=== PATIENT | female | born 1945 | race African-American/Black ===

== ENCOUNTER 2017-05-21 19:04 | Emergency (ER) | payer MEDICARE, MEDICAID ==
[~2017-05-21] VITALS: Ht 160 cm; Wt 63.5 kg
[~2017-05-21 19:04] MED LIST: GABA-534 PO; INSU100V7 SQ; LEVO125T8 PO; LOSA50TA21 PO; METO-356 PO; SIMV40TA5 PO
[2017-05-21] MEDS ORDERED: oxyCODONE/APAP (5/325 MG) 1 UDTAB TABLET ONE (19:18)
--- NOTE | 2017-05-21 19:22 | NUR ---
[facility] FOR S/P FALL TODAY. BUTTOCK, LT FLANK PAIN, +FOREHEAD HEMATOMA, NO KO. NO SOB NOTED. PAIN ON FOREHEAD/HEMATOMA 09/03. A/OX4 VSS NAD WILL CONTINUE TO MONITOR FOR ANY CHANGES DURING THE SHIFT
[2017-05-21] MEDS ORDERED: oxyCODONE/APAP (5/325 MG) 1 UDTAB TABLET PO ONE (19:30)
--- NOTE | 2017-05-21 19:30 | NUR ---
CODING MACHINE OPERATOR AT BEDSIDE FOR BLOOD DRAW
[2017-05-21 19:45] LABS: BASOPHILS # (AUTO) 0.1 /CMM (0.0-0.2); BASOPHILS % (AUTO) 0.4 % (0.0-2.0); EOSINOPHILS # (AUTO) 0.1 /CMM (0.0-0.7); HEMATOCRIT 29 % (33-45); HEMOGLOBIN 9.5 g/dL (11.5-14.8); LYMPHOCYTES # (AUTO) 3.3 /CMM (0.8-4.8); LYMPHOCYTES % (AUTO) 25.8 % (20.0-44.0); MEAN CORPUSCULAR HEMOGLOBIN 22 PG (26.0-33.0); MEAN CORPUSCULAR HGB CONC 33 g/dl (31.0-36.0); MEAN CORPUSCULAR VOLUME 67 fL (82-100); MONOCYTES # (AUTO) 1.2 /CMM (0.1-1.30); MONOCYTES % (AUTO) 9.5 % (2.0-12.0); NEUTROPHILS # (AUTO) 8.2 /CMM (1.8-8.9); NEUTROPHILS % (AUTO) 63.3 % (43.0-81.0); PLATELET COUNT (AUTO) 267 /CMM (150-450); RDW COEFFICIENT OF VARIATION 20.6 (11.5-15.0); RED BLOOD CELL COUNT(AUTO) 4.33 MIL/uL (4.0-5.2); WHITE BLOOD COUNT (AUTO) 12.9 K/uL (4.3-11.0)
--- NOTE | 2017-05-21 19:48 | NUR ---
RADIOLOGY NOTIFIED ABOUT XRAYS TO BE DONE ON PATIENT. STATED "WE ARE ON THE WAY"
--- NOTE | 2017-05-21 19:49 | NUR ---
CT TO BE DONE WELL
[2017-05-21 19:53] LABS: CALCIUM, SERUM 8.3 mg/dL (8.5-10.1); CARBON DIOXIDE 22 mmol/L (21-32); CHLORIDE 105 mmol/L (98-107); CREATININE 1.4 mg/dL (0.6-1.3); GLUCOSE 215 mg/dL (74-106); POTASSIUM 4.6 mmol/L (3.5-5.1); SODIUM SERUM 137 mmol/L (136-145); UREA NITROGEN, BLOOD 32 mg/dL (7-18)
[2017-05-21 20:02] LABS: TROPONIN I < 0.017 ng/mL (0.00-0.056)
[2017-05-21 20:26] LABS: LYMPHOCYTES % (MANUAL) 26 % (16-48); MONOCYTES % (MANUAL) 5 % (0-11.0); NEUTROPHILS % (MANUAL) 68 (42-76); REACTIVE LYMPHOCYTES 1 % (0-0)
--- NOTE | 2017-05-21 21:51 | NUR ---
GAVE REPORT TO LOREN COOK AT RETURNING FACILITY. [facility] TO BE CALLED FOR PICKUP
--- NOTE | 2017-05-21 21:52 | NUR ---
[facility] ETA: 90 MINS - 2 HRS
--- NOTE | 2017-05-21 23:36 | NUR ---
PT AGITATED THAT AMBULANCE HAS NOT ARRIVED YET. CALMED HER DOWN WITH CONVERSATION. WILL CONTINUE TO WAIT ARRIVAL
[2017-05-22 00:48] VITALS: BP 140/87
== END 2017-05-22 00:49 ==
LOC: ER 19:05
DX: S00.83XA Contusion of other part of head, initial encounter (principal); S30.0XXA Contusion of lower back and pelvis, initial encounter; D64.9 Anemia, unspecified; E03.9 Hypothyroidism, unspecified; E11.9 Type 2 diabetes mellitus without complications; E78.5 Hyperlipidemia, unspecified; F41.9 Anxiety disorder, unspecified; I10 Essential (primary) hypertension; K21.9 Gastro-esophageal reflux disease without esophagitis; F20.9 Schizophrenia, unspecified; R29.6 Repeated falls; Z79.4 Long term (current) use of insulin; W18.39XA Other fall on same level, initial encounter; Y93.89 Activity, other specified; Y92.89 Other specified places as the place of occurrence of the external cause; Y99.8 Other external cause status
CPT/HCPCS: 36415; 70450; 71045; 72170; 72220; 80048; 84484; 85025; 93005; 99285; A4606; Z7610

== ENCOUNTER 2017-05-23 19:20 | Inpatient (IN) | payer MEDICARE, MEDICAID ==
[~2017-05-23] VITALS: Ht 170.2 cm; Wt 90.7 kg
--- NOTE | 2017-05-23 19:36 | NUR ---
PT MEG FROM [facility] HERE FOR PSYCH EVAL "THROWING HERSELF ON THE FLOOR" BUMP NOTED ON FOREHEAD AND DISCOLORATION TO FACE. PT AOX3 RR EVEN AND UNLABORED. NO SOB NOTED. NAD NOTED. NO NVD AT THIS TIME. PT GOWNED AND PLACED ON MONITOR WAITING FOR MD JIMENEZ. PT NOTED WITH STEADY GAIT.
--- NOTE | 2017-05-23 19:40 | NUR ---
URINE COLLECTED. CALLED LAB FOR TRAFFIC ADMINISTRATOR.
--- NOTE | 2017-05-23 19:52 | NUR ---
LAB AT BEDSIDE FOR BLOOD DRAW
--- NOTE | 2017-05-23 19:58 | NUR ---
Emeterio BENSON AT BEDSIDE FOR EVAL.
[2017-05-23 20:09] LABS: APPEARANCE,URINE Clear (CLEAR); BILIRUBIN,URINE Negative (NEGATIVE); BLOOD, URINE Negative Ery/uL (NEGATIVE); COLOR,URINE Light yellow (YELLOW); KETONES,URINE Negative (NEGATIVE); LEUKOCYTE ESTERASE ,URINE Negative (NEGATIVE); NITRITE, URINE Negative (NEGATIVE); PROTEIN,URINE Negative (NEGATIVE); UGLUCOSE Negative (NEGATIVE); UROBILINOGEN,URINE 0.2 EU/dL (0.2)
--- NOTE | 2017-05-23 20:41 | NUR ---
CALLED BAKARI HAGEN, PER JOYCE DOW UNWITNESSWED FALL IN RESTROOM SEVERAL DAYS AGO, STATES PT WANTS TO HARM HERSELF TODAY ADMITS TO SI WITH PLAN TO RUN INFRONT OF TRAFFIC, REPAIRER KILN CAR LAYING ON GROWN AND TRIED TO BANG HEAD AGAINST FLOOR, AND RECEIVED SEROQUEL 75MG, PO WAS SEEN BY DR PRETTY EARLIER TODAY. "
--- NOTE | 2017-05-23 20:47 | NUR ---
PT ASSIGNED TO 216-B
--- NOTE | 2017-05-23 20:49 | NUR ---
PT TO CT.
--- NOTE | 2017-05-23 21:07 | NUR ---
PT RETURNED FROM CT
--- NOTE | 2017-05-23 21:16 | NUR ---
CALLED LAB FOR BLOOD DRAW
--- NOTE | 2017-05-23 21:20 | NUR ---
LAB AT BEDSIDE FOR BLOOD DRAW
[2017-05-23] MEDS ORDERED: TRAMADOL HCL 50 MG TABLET PO ONE (22:30)
--- NOTE | 2017-05-23 22:30 | NUR ---
PT ADMITS TO GIVING FALSE URINE. NEW URINE COLLECTED. CALLED LAB FOR DATABASE TECHNICIAN.
--- NOTE | 2017-05-23 22:33 | NUR ---
PINKY AT BEDSIDE SPEAKING TO PT FOR EVAL.
[2017-05-23 22:40] LABS: ALANINE AMINOTRANSFERASE 53 U/L (12-78); ALBUMIN 3.2 g/dL (3.4-5.0); ALCOHOL, BLOOD < 3 mg/dL (0-0); ALKALINE PHOSPHATASE 320 U/L (46-116); ASPARTATE AMINOTRANSFERASE 54 U/L (15-37); BILIRUBIN,DIRECT 0.2 mg/dL (0.0-0.2); BILIRUBIN,TOTAL 0.4 mg/dL (0.2-1.0); CALCIUM, SERUM 8.8 mg/dL (8.5-10.1); CARBON DIOXIDE 22 mmol/L (21-32); CHLORIDE 101 mmol/L (98-107); CREATININE 1.4 mg/dL (0.6-1.3); GLUCOSE 240 mg/dL (74-106); POTASSIUM 4.6 mmol/L (3.5-5.1); SODIUM SERUM 136 mmol/L (136-145); TOTAL PROTEIN, SERUM 9.4 g/dL (6.4-8.2); UREA NITROGEN, BLOOD 31 mg/dL (7-18)
[2017-05-23 22:43] LABS: ACETAMINOPHEN 0 ug/ml (10-30); SALICYLATE 1.1 mg/dL (2.8-20.0)
[2017-05-23 22:45] LABS: EOSINOPHILS # (AUTO) 0.2 /CMM (0.0-0.7); EOSINOPHILS % (AUTO) 1.7 % (0.0-6.0); HEMATOCRIT 36 % (33-45); LYMPHOCYTES # (AUTO) 3.9 /CMM (0.8-4.8); LYMPHOCYTES % (AUTO) 33.6 % (20.0-44.0); MEAN CORPUSCULAR HEMOGLOBIN 22 PG (26.0-33.0); MEAN CORPUSCULAR HGB CONC 31 g/dl (31.0-36.0); MEAN CORPUSCULAR VOLUME 69 fL (82-100); MONOCYTES # (AUTO) 0.8 /CMM (0.1-1.30); MONOCYTES % (AUTO) 6.7 % (2.0-12.0); NEUTROPHILS # (AUTO) 6.7 /CMM (1.8-8.9); PLATELET COUNT (AUTO) 346 /CMM (150-450); RDW COEFFICIENT OF VARIATION 23.1 (11.5-15.0); RED BLOOD CELL COUNT(AUTO) 5.11 MIL/uL (4.0-5.2); WHITE BLOOD COUNT (AUTO) 11.6 K/uL (4.3-11.0)
--- NOTE | 2017-05-23 23:01 | NUR ---
REPORT GIVEN JOYCE FOSTER FOR GEOPSYCH HIRO
--- NOTE | 2017-05-23 23:08 | NUR ---
PT TRANSFERRED VIA W/C TO [facility].
[2017-05-23 23:16] VITALS: BP 146/56
--- NOTE | 2017-05-23 23:16 | NUR ---
GPS RN NOTES: ADMITTED A 72-Y/O, FROM [facility], PATIENT ADMITTED ON A 5150 HOLD FOR DTS/GD. PER HOLD PATIENT HAS BEEN THROWING HERSELF ON THE FLOOR, DISRUPTIVE BEHAVIOR, DISORGANIZE, PATIENT ALSO VERBALIZE OF WANTING TO RUN INTO TRAFFIC. UPON FACE TO FACE ASSESSMENT, PATIENT IS ALERT, ORIENTED X2, AMBULATORY WITH UNSTEADY GAIT, APPEARS TO BE DISHEVELED, UNKEMPT, PREOCCUPIED TO HER THOUGHTS. SHOWS NO S/SX OF DISTRESS, RESPIRATION EVEN, BREATHING PATTERN NON-LABORED, DENIES ANY PAIN/DISCOMFORT. PATIENT RESTING COMFORTABLY IN BED, NO APPARENT DISTRESS NOTED. BELONGINGS INVENTORIED AND CHECKED FOR CONTRABAND. REVIEWED PATIENT'S RIGHTS AND SHE VERBALIZED UNDERSTANDING. PATIENT IS UNDER THE PSYCHIATRIC CARE OF DR. BROWNING, ORDERS OBTAINED AND UNDER THE MEDICAL CARE OF KELLY RDZ DONE. SKIN ASSESSMENT DONE. BED LOCKED AND PLACED ON LOWEST POSITION. WILL CONTINUE TO MONITOR [id number] FOR SAFETY AND BEHAVIOR.
[2017-05-24] MEDS ORDERED: MAGNESIUM HYDROXIDE 30 ML UDC PO PRN
[2017-05-24] MEDS ORDERED: MAG HYDROX/AL HYDROX/SIMETH 30 ML UDC PO PRN
[2017-05-24] MEDS ORDERED: ENOXAPARIN SODIUM 40 MG/0.4 ML DISP.SYRIN SQ SCH (00:30)
[2017-05-24] MEDS ORDERED: DEXTROSE 50%-WATER 50 ML DISP.SYRIN IV PRN (00:30)
[2017-05-24] MEDS: ACETAMINOPHEN 325 MG TABLET PO PRN ×2 (00:30→07:40)
--- NOTE | 2017-05-24 00:55 | NUR ---
GPS RN NOTES: PATIENT REFUSED LOVENOX 40MEQ SQ SCHEDULED. OFFERED X3, DESPITE OF EXPLANATION RISKS AND BENEFITS. WILL CONTINUE TO MONITOR.
[2017-05-24] MEDS: TEMAZEPAM 7.5 MG CAPSULE PO PRN ×2 (00:56→23:51)
--- NOTE | 2017-05-24 06:36 | NUR ---
GPS RN NOTES: NOTIFIED JEWELL ALBRECHT DAUGHTER REGARDING PATIENT'S ADMISSION.
[2017-05-24 07:35] LABS: EOSINOPHILS # (AUTO) 0.2 /CMM (0.0-0.7); EOSINOPHILS % (AUTO) 1.7 % (0.0-6.0); HEMATOCRIT 30 % (33-45); HEMOGLOBIN 9.5 g/dL (11.5-14.8); LYMPHOCYTES # (AUTO) 2.7 /CMM (0.8-4.8); LYMPHOCYTES % (AUTO) 29.2 % (20.0-44.0); MEAN CORPUSCULAR HEMOGLOBIN 22 PG (26.0-33.0); MEAN CORPUSCULAR HGB CONC 32 g/dl (31.0-36.0); MEAN CORPUSCULAR VOLUME 69 fL (82-100); MONOCYTES # (AUTO) 0.9 /CMM (0.1-1.30); MONOCYTES % (AUTO) 10.1 % (2.0-12.0); NEUTROPHILS # (AUTO) 5.5 /CMM (1.8-8.9); PLATELET COUNT (AUTO) 298 /CMM (150-450); RDW COEFFICIENT OF VARIATION 22.5 (11.5-15.0); RED BLOOD CELL COUNT(AUTO) 4.36 MIL/uL (4.0-5.2); WHITE BLOOD COUNT (AUTO) 9.3 K/uL (4.3-11.0)
[2017-05-24] MEDS: BLOOD SUGAR DIAGNOSTIC 1 EACH STRIP IN SCH ×4 (07:48→22:02)
[2017-05-24] MEDS: INSULIN REGULAR, HUMAN 100 UNIT/ML 3 ML VIAL SQ PRN ×3 (07:55→17:36)
[2017-05-24 07:56] LABS: CALCIUM, SERUM 8.4 mg/dL (8.5-10.1); CARBON DIOXIDE 25 mmol/L (21-32); CHLORIDE 104 mmol/L (98-107); CREATININE 1.2 mg/dL (0.6-1.3); GLUCOSE 254 mg/dL (74-106); MAGNESIUM 1.9 mg/dL (1.8-2.4); PHOSPHORUS 3.4 mg/dL (2.5-4.9); POTASSIUM 4.4 mmol/L (3.5-5.1); SODIUM SERUM 138 mmol/L (136-145); UREA NITROGEN, BLOOD 29 mg/dL (7-18)
[2017-05-24 08:00] VITALS: BP 123/90
[2017-05-24] MEDS: LORAZEPAM 0.5 MG TABLET PO PRN ×2 (08:04→18:17)
--- NOTE | 2017-05-24 08:05 | NUR ---
RN NOTE: PATIENT ASKED FOR PAIN MEDICATION, PULLED OUT ACETAMINOPHEN. PATIENT DENIED. MED WASTED. PATIENT STATES SHE IS ANXIOUS. LORAZEPAM 0.5MG GIVEN.
[2017-05-24] MEDS: METOPROLOL SUCCINATE 25 MG TAB.SR.24H PO SCH (08:54)
[2017-05-24] MEDS: LOSARTAN POTASSIUM 50 MG TABLET PO SCH (08:54)
[2017-05-24] MEDS: SIMVASTATIN 40 MG TABLET PO SCH (08:54)
[2017-05-24] MEDS ORDERED: GABAPENTIN 300 MG CAPSULE PO SCH ×2 (09:00→13:00)
[2017-05-24 09:25] LABS: BAND % (MANUAL) 1 % (0.0-5.0); EOSINOPHILS % (MANUAL) 2 % (0-4); LYMPHOCYTES % (MANUAL) 32 % (16-48); MONOCYTES % (MANUAL) 7 % (0-11.0); NEUTROPHILS % (MANUAL) 58 (42-76)
[2017-05-24 11:20] LABS: CHOLESTEROL 189 mg/dL (<200); HDL CHOLESTEROL 72 mg/dL (40-60); LDL 88 mg/dL (0-99); TRIGLYCERIDES 129 mg/dL (30-150)
[2017-05-24 11:34] LABS: IRON, SERUM 29 ug/dl (50-175)
[2017-05-24] MEDS ORDERED: clonazePAM 0.5 MG TABLET PO PRN (12:00)
[2017-05-24] MEDS: QUETIAPINE FUMARATE 25 MG TABLET PO SCH ×3 (13:00→21:54)
[2017-05-24] MEDS: GABAPENTIN 300 MG CAPSULE PO SCH ×2 (13:01→16:42)
[2017-05-24] MEDS: busPIRone 5 MG TABLET PO SCH ×2 (13:01→16:42)
--- NOTE | 2017-05-24 13:38 | NUR ---
WOUND CARE CONSULT: PT PRESENTS WITH BUMP TO RT FOREHEAD, BRUISING WITH SWELLING AROUND RT EYE, BRUISING UNDER LEFT EYE, ABDOMINAL SKIN FOLD RASH AND RT GREAT TOE CALLUS, SOME DRY ABRASIONS, ALL PRESENT ON ADMISSION. PT IS AMBULATORY AND MOSTLY CONTINENT WITH SOME URINARY STRESS INCONTINENCE. DEFER TO MD FOR RT FOREHEAD BUMP. RECOMMENDATIONS MADE FOR SKIN PROTECTION AND RASH CARE. DISCUSSED WITH NURSING STAFF. WILL SEE PRN. MD IN AGREEMENT WITH PLAN OF CARE. Addendum: 05/24/17 at 1344 by VERÓNICA NAVARRETE WNDNU Amended: Links added.
[2017-05-24] MEDS: Z GUARD REMEDY 2 OZ OINT TP SCH (14:00)
[2017-05-24] MEDS ORDERED: Z GUARD REMEDY 2 OZ OINT TP PRN (14:00)
--- NOTE | 2017-05-24 14:34 | NUR ---
Initial Discharge Note: [facility] [address] [place] [id number] / fax number [phone]. Patient wishes to return upon discharge. SW called and spoke with grant coordinator BRETT who confirmed that patient is able to return to facility. SW attempted to get in contact with patient's mother, Queenie [phone], but call was not answered and no voicemail was available. SW to follow up with MD and facilitate safe and proper discharge.
[2017-05-24] MEDS: FERROUS SULFATE (325 MG) 325 MG/TAB TABLET PO SCH (16:42)
[2017-05-24] MEDS: SERTRALINE HCL 25 MG TABLET PO SCH (16:42)
[2017-05-24] MEDS: HYDROCODONE/APAP 5/325MG 1 EACH TABLET PO PRN (16:42)
[2017-05-24] MEDS: CLOTRIMAZOLE 1% 15 GM TUBE TP SCH (16:42)
[2017-05-24 17:07] VITALS: BP 150/69
--- NOTE | 2017-05-24 17:16 | NUR ---
PATIENT STATES SHE HAS 8/10 PAIN. NORCO PRN GIVEN.
--- NOTE | 2017-05-24 18:18 | NUR ---
PATIENT ANXIOUS. LORAZEPAM 0.5MG GIVEN.
--- NOTE | 2017-05-24 19:20 | NUR ---
GPS/HIGH SCALER; RECEIVED PT IN THE DINING ROOM SITTING ON THE CHAIR AWAKE WATCHING TV. DENIES ANY PAIN. BREATHING NON LABORED. PT IS AMBULATORY. WILL CONTINUE TO MONITOR.
[2017-05-24] MEDS: INSULIN LISPRO/ASPART 100 UNIT/ML CARTRIDGE SQ SCH (19:22)
[2017-05-24 21:00] VITALS: BP 146/72
[2017-05-24] MEDS: INSULIN GLARGINE, 100 UNIT/ML CARTRIDGE SQ SCH (22:00)
--- NOTE | 2017-05-24 22:00 | NUR ---
GPS/ AT RISK PARAPROFESSIONAL; BS 42 ON LT 5TH FINGER ; RE CHECKED BS 52. CHARGE NURSE NOTIFIED. APPLE JUICE WITH SUGAR GIVEN. PT REFUSED MADAY EAT SANDWICH. LANTUS 18 UNITS SQ NOT GIVEN ALSO.
--- NOTE | 2017-05-24 23:15 | NUR ---
GPS/RN DIALYSIS; RE CHECKED BS 119 AND CHARGE NURSE INFORMED.
--- NOTE | 2017-05-24 23:30 | NUR ---
GPS/[employer]IONS FIRM ACCOUNTS MANAGER; I PLACED A CALL TO NALLELY BRUNNER POWER DRIVEN BRUSH MAKER, AND I NOTIFIED HER PT'S BS 42 , RE CHECKED 52 AND AT 2315 BS 119. I TOLD HER THAT I DID NOT GIVE THE LANTUS. AND SHE IT IS OK.
--- NOTE | 2017-05-25 06:45 | NUR ---
GPS /ANAESTHESIOLOGIST; SLEPT FOR 7 HOURS. DENIES PAIN. BREATHING NON LABORED. WILL ENDORSE TO THE DAY SHIFT NURSE.
--- NOTE | 2017-05-25 07:00 | NUR ---
GPS/COMPUTER VIDEO GAME DESIGNER; STILL WITH FACIAL DISCOLORATION.
[2017-05-25] MEDS: BLOOD SUGAR DIAGNOSTIC 1 EACH STRIP IN SCH ×4 (07:36→21:32)
[2017-05-25] MEDS: INSULIN REGULAR, HUMAN 100 UNIT/ML 3 ML VIAL SQ PRN ×2 (07:39→12:12)
[2017-05-25] MEDS: LEVOTHYROXINE SODIUM 125 MCG TABLET PO SCH (07:46)
[2017-05-25 08:00] VITALS: BP 150/70
[2017-05-25] MEDS: QUETIAPINE FUMARATE 25 MG TABLET PO SCH ×4 (08:44→21:32)
[2017-05-25] MEDS: SIMVASTATIN 40 MG TABLET PO SCH (08:44)
[2017-05-25] MEDS: GABAPENTIN 300 MG CAPSULE PO SCH ×3 (08:44→16:21)
[2017-05-25] MEDS: LOSARTAN POTASSIUM 50 MG TABLET PO SCH (08:44)
[2017-05-25] MEDS: busPIRone 5 MG TABLET PO SCH ×3 (08:44→16:20)
[2017-05-25] MEDS: CLOTRIMAZOLE 1% 15 GM TUBE TP SCH ×2 (08:45→16:21)
[2017-05-25] MEDS: METOPROLOL SUCCINATE 25 MG TAB.SR.24H PO SCH (08:45)
[2017-05-25] MEDS: FERROUS SULFATE (325 MG) 325 MG/TAB TABLET PO SCH ×2 (08:45→16:21)
[2017-05-25] MEDS: Z GUARD REMEDY 2 OZ OINT TP SCH (08:45)
[2017-05-25] MEDS: INSULIN LISPRO/ASPART 100 UNIT/ML CARTRIDGE SQ SCH ×2 (09:00→17:31)
--- NOTE | 2017-05-25 09:29 | NUR ---
Discharge Planning: CONOR spoke with patient's mother, Queenie [phone]. Queenie stated that she was glad to hear patient would be returning to SNF upon discharge.
[2017-05-25] MEDS: HYDROCODONE/APAP 5/325MG 1 EACH TABLET PO PRN (09:37)
--- NOTE | 2017-05-25 09:39 | NUR ---
PATIENT STATES SHE IS IN PAIN. 11/03. PRN HYDROCODONE GIVEN.
[2017-05-25] MEDS: LORAZEPAM 0.5 MG TABLET PO PRN (15:52)
--- NOTE | 2017-05-25 15:53 | NUR ---
PATIENT IS ANXIOUS. LORAZEPAM 0.5 MG GIVEN
[2017-05-25 16:02] VITALS: BP 155/79
[2017-05-25] MEDS: SERTRALINE HCL 25 MG TABLET PO SCH (16:20)
[2017-05-25 20:00] VITALS: BP 153/63
[2017-05-25] MEDS: PHENYTOIN EXTENDED RELEASE 100 MG CAPSULE PO SCH (21:32)
[2017-05-25] MEDS: INSULIN GLARGINE, 100 UNIT/ML CARTRIDGE SQ SCH (21:36)
[2017-05-25] MEDS: *INSULIN REGULAR(HUMULIN R)HUM 100 UNIT/ML VIAL SQ PRN (21:38)
[2017-05-26] MEDS: LORAZEPAM 0.5 MG TABLET PO PRN (04:25)
[2017-05-26] MEDS: LEVOTHYROXINE SODIUM 125 MCG TABLET PO SCH (07:30)
[2017-05-26] MEDS: BLOOD SUGAR DIAGNOSTIC 1 EACH STRIP IN SCH ×4 (07:30→21:41)
[2017-05-26 08:00] VITALS: BP 145/64
[2017-05-26] MEDS: busPIRone 5 MG TABLET PO SCH ×3 (08:24→17:00)
[2017-05-26] MEDS: METOPROLOL SUCCINATE 25 MG TAB.SR.24H PO SCH (08:24)
[2017-05-26] MEDS: CALCIUM CARB 600MG /VIT D 1 EACH TABLET PO SCH (08:24)
[2017-05-26] MEDS: SIMVASTATIN 40 MG TABLET PO SCH (08:24)
[2017-05-26] MEDS: LOSARTAN POTASSIUM 50 MG TABLET PO SCH (08:25)
[2017-05-26] MEDS: PHENYTOIN EXTENDED RELEASE 100 MG CAPSULE PO SCH (08:25)
[2017-05-26] MEDS: FERROUS SULFATE (325 MG) 325 MG/TAB TABLET PO SCH ×2 (08:25→17:00)
[2017-05-26] MEDS: GABAPENTIN 300 MG CAPSULE PO SCH ×3 (08:25→17:00)
[2017-05-26] MEDS: HYDROCODONE/APAP 5/325MG 1 EACH TABLET PO PRN ×2 (08:26→18:52)
[2017-05-26] MEDS: QUETIAPINE FUMARATE 25 MG TABLET PO SCH ×4 (08:26→21:41)
[2017-05-26] MEDS: INSULIN REGULAR, HUMAN 100 UNIT/ML 3 ML VIAL SQ PRN ×3 (08:29→18:55)
[2017-05-26] MEDS: INSULIN LISPRO/ASPART 100 UNIT/ML CARTRIDGE SQ SCH ×2 (08:31→18:56)
[2017-05-26] MEDS: Z GUARD REMEDY 2 OZ OINT TP SCH (08:32)
[2017-05-26] MEDS: CLOTRIMAZOLE 1% 15 GM TUBE TP SCH ×2 (08:32→18:53)
--- NOTE | 2017-05-26 11:20 | NUR ---
Discharge Planning: CONOR faxed updated clinicals to [address] [address] / fax number [phone]. Discharge confirmed for Monday.
[2017-05-26 16:00] VITALS: BP 142/69
[2017-05-26] MEDS: SERTRALINE HCL 25 MG TABLET PO SCH (17:00)
[2017-05-26 20:00] VITALS: BP 129/65
[2017-05-26] MEDS: TEMAZEPAM 7.5 MG CAPSULE PO PRN (21:41)
[2017-05-26] MEDS: *INSULIN REGULAR(HUMULIN R)HUM 100 UNIT/ML VIAL SQ PRN (21:48)
[2017-05-26] MEDS ORDERED: INSULIN GLARGINE, 100 UNIT/ML CARTRIDGE SQ ONE (22:12)
[2017-05-26] MEDS: INSULIN GLARGINE, 100 UNIT/ML CARTRIDGE SQ SCH (22:39)
[2017-05-27 08:00] VITALS: BP 144/78
[2017-05-27] MEDS: BLOOD SUGAR DIAGNOSTIC 1 EACH STRIP IN SCH ×4 (08:36→21:39)
[2017-05-27] MEDS: LEVOTHYROXINE SODIUM 125 MCG TABLET PO SCH (08:38)
[2017-05-27] MEDS: GABAPENTIN 300 MG CAPSULE PO SCH ×3 (08:38→16:25)
[2017-05-27] MEDS: SIMVASTATIN 40 MG TABLET PO SCH (08:38)
[2017-05-27] MEDS: LORAZEPAM 0.5 MG TABLET PO PRN (08:39)
[2017-05-27] MEDS: METOPROLOL SUCCINATE 25 MG TAB.SR.24H PO SCH (08:39)
[2017-05-27] MEDS: busPIRone 5 MG TABLET PO SCH ×3 (08:39→16:25)
[2017-05-27] MEDS: CALCIUM CARB 600MG /VIT D 1 EACH TABLET PO SCH (08:39)
[2017-05-27] MEDS: QUETIAPINE FUMARATE 25 MG TABLET PO SCH ×4 (08:39→22:07)
[2017-05-27] MEDS: LOSARTAN POTASSIUM 50 MG TABLET PO SCH (08:39)
[2017-05-27] MEDS: *INSULIN REGULAR(HUMULIN R)HUM 100 UNIT/ML VIAL SQ PRN ×2 (08:41→21:41)
[2017-05-27] MEDS: FERROUS SULFATE (325 MG) 325 MG/TAB TABLET PO SCH ×2 (08:43→16:27)
--- NOTE | 2017-05-27 08:45 | NUR ---
GPS RN NOTES PATIENT VERBALIZED FEELING OF ANXIOUSNESS. NO CHANGES IN LOC NOTED AT THIS TIME. PATIENT REQUESTED FOR ATIVAN, GIVEN MEDICATION ORDERED PRN. WILL CONTINUE TO MONITOR
[2017-05-27] MEDS: INSULIN REGULAR, HUMAN 100 UNIT/ML 3 ML VIAL SQ PRN ×3 (08:47→17:37)
[2017-05-27] MEDS: INSULIN LISPRO/ASPART 100 UNIT/ML CARTRIDGE SQ SCH ×2 (08:48→17:38)
[2017-05-27] MEDS: CLOTRIMAZOLE 1% 15 GM TUBE TP SCH ×2 (08:49→16:26)
[2017-05-27] MEDS: Z GUARD REMEDY 2 OZ OINT TP SCH (09:24)
[2017-05-27] MEDS: HYDROCODONE/APAP 5/325MG 1 EACH TABLET PO PRN (11:16)
--- NOTE | 2017-05-27 11:18 | NUR ---
GPS RN NOTES PATIENT WITH COMPLAIN OF SEVERE LOWER BACK PAIN. GIVEN NORCO 5/325 NG PO ORDERED PRN. PATIENT ALERT AND ORIENTED. NO CHANGES IN LOC NOTED AT THIS TIME. NO INCREASED SEDATION NOTED. WILL CONTINUE TO MONITOR
[2017-05-27 16:00] VITALS: BP 163/65
[2017-05-27] MEDS: ACETAMINOPHEN 325 MG TABLET PO PRN (16:24)
[2017-05-27] MEDS: SERTRALINE HCL 25 MG TABLET PO SCH (16:25)
[2017-05-27 20:00] VITALS: BP 131/67
[2017-05-27] MEDS: INSULIN GLARGINE, 100 UNIT/ML CARTRIDGE SQ SCH (22:00)
[2017-05-27] MEDS: TEMAZEPAM 7.5 MG CAPSULE PO PRN (22:07)
--- NOTE | 2017-05-28 01:40 | NUR ---
Pt barragan been anxious with flat affect but compliant with care.
--- NOTE | 2017-05-28 05:50 | NUR ---
Pt's blood sugar level last night was 171 mg/dl & 3 Units of Regular Insulin was given SQ as ordered.
[2017-05-28 08:00] VITALS: BP 144/62
[2017-05-28] MEDS: GABAPENTIN 300 MG CAPSULE PO SCH ×3 (08:11→17:07)
[2017-05-28] MEDS: LEVOTHYROXINE SODIUM 125 MCG TABLET PO SCH (08:12)
[2017-05-28] MEDS: METOPROLOL SUCCINATE 25 MG TAB.SR.24H PO SCH (08:12)
[2017-05-28] MEDS: SIMVASTATIN 40 MG TABLET PO SCH (08:12)
[2017-05-28] MEDS: LOSARTAN POTASSIUM 50 MG TABLET PO SCH (08:12)
[2017-05-28] MEDS: QUETIAPINE FUMARATE 25 MG TABLET PO SCH ×4 (08:13→21:43)
[2017-05-28] MEDS: busPIRone 5 MG TABLET PO SCH ×3 (08:13→17:07)
[2017-05-28] MEDS: CALCIUM CARB 600MG /VIT D 1 EACH TABLET PO SCH (08:17)
[2017-05-28] MEDS: FERROUS SULFATE (325 MG) 325 MG/TAB TABLET PO SCH ×2 (08:18→17:00)
[2017-05-28] MEDS: Z GUARD REMEDY 2 OZ OINT TP SCH (08:22)
[2017-05-28] MEDS: INSULIN LISPRO/ASPART 100 UNIT/ML CARTRIDGE SQ SCH ×2 (09:00→18:05)
[2017-05-28] MEDS: CLOTRIMAZOLE 1% 15 GM TUBE TP SCH ×2 (09:06→17:13)
[2017-05-28] MEDS: BLOOD SUGAR DIAGNOSTIC 1 EACH STRIP IN SCH ×3 (12:00→21:53)
--- NOTE | 2017-05-28 13:00 | NUR ---
NURSING NOTE WAS NOT ABLE TO PERFORM ACCUCHEK ON PT AND RANDOM BG TEST WAS ORDERED, WAS NOT ABLE TO ADMINISTER HUMALOG THIS MORNING, LABS WERE DRAWN AT 1230 AND BG WAS 362 MG/DL, 10 UNITS OF REGULAR INSULIN WERE ADMINISTERED.
[2017-05-28] MEDS: ACETAMINOPHEN 325 MG TABLET PO PRN ×2 (13:08→21:44)
--- NOTE | 2017-05-28 13:10 | NUR ---
NURSING NOTE PT C/O HEADACHE, PAIN 09/03, PER PT REQUEST TYLENOL 650 MG PO WAS GIVEN, VS STABLE, WILL CONTINUE TO MONITOR
[2017-05-28] MEDS: *INSULIN REGULAR(HUMULIN R)HUM 100 UNIT/ML VIAL SQ PRN ×2 (13:57→18:06)
--- NOTE | 2017-05-28 14:10 | NUR ---
NURSING NOTE REASSESSED PT'S PAIN LEVEL, PT REPORTS 0/10 PAIN, VS STABLE, WILL CONTINUE TO MONITOR
[2017-05-28 16:00] VITALS: BP 151/69
[2017-05-28] MEDS: SERTRALINE HCL 25 MG TABLET PO SCH (17:07)
--- NOTE | 2017-05-28 18:00 | NUR ---
NURSING NOTE WAS ABLE TO PERFORM ACCUCHECK ON PT, BG WAS 267 MG/DL, 6 UNITS OF REGULAR INSULIN WERE ADMINISTERED, WILL CONTINUE TO MONITOR
[2017-05-28 19:48] VITALS: BP 158/69
[2017-05-28] MEDS: TEMAZEPAM 7.5 MG CAPSULE PO PRN (21:44)
[2017-05-28] MEDS ORDERED: INSULIN GLARGINE, 100 UNIT/ML CARTRIDGE SQ SCH (22:00)
--- NOTE | 2017-05-28 22:49 | NUR ---
Pt c/o generalized body pain @ 2114. Tylenol 650 mg po prn given. Effective. Post 1 hour VA 0. Will continue to monitor.
--- NOTE | 2017-05-28 22:51 | NUR ---
Pt c/o insomnia @ 2113. Restoril 7.5 mg po given prn. Effective. Post 1 hour asleep in bed easy to arouse. Will continue to monitor.
--- NOTE | 2017-05-29 07:15 | NUR ---
GPS OPENING NOTE PATIENT ALERT AND ORIENTED X4. NOTED TO BE ANXIOUS ABOUT GETTING DISCHARGE. THE PATIENT VERBALIZED WANTING TO GET DISCHARGE. RESPIRATION REGULAR AND UNLABORED. DENIES SOB, PAIN AT THIS TIME. IN NO APPARENT DISTRESS. ALL NEEDS ATTENDED AND ANTICIPATED. WILL CONTINUE TO MONITOR.
[2017-05-29] MEDS: BLOOD SUGAR DIAGNOSTIC 1 EACH STRIP IN SCH ×2 (07:58→12:00)
[2017-05-29 08:00] VITALS: BP 136/63
[2017-05-29] MEDS: INSULIN REGULAR, HUMAN 100 UNIT/ML 3 ML VIAL SQ PRN (08:04)
--- NOTE | 2017-05-29 08:39 | NUR ---
Discharge Note: Patient will be discharged to [facility] [address] [place] [address] / fax number [phone] via ambulance transportation arranged by CONOR through [employer], trip #[id number]. Patients mother, Queenie [phone], is aware and in agreement. Facility has been informed of discharge. Upon discharge, patient is calm and cooperative and pleasant. Patient denies suicidal and homicidal ideation. Patient denies visual and auditory hallucinations. Patient states that she is very happy to be returning to SNF. At the facility, patient will be under the care of tool inspector Dr. Salcedo [address] [facility] [address], [place] [address] . Patient will also be followed by psychiatrist Dr. Rosenberg [address], [place] [address] . Addendum: 05/29/17 at 1017 by EDEN PERDOMO At patient's request, CONOR also informed her brother Rafita [phone]. Rafita thanked CONOR and was in agreement with discharge plan.
[2017-05-29] MEDS: SIMVASTATIN 40 MG TABLET PO SCH (08:47)
[2017-05-29] MEDS: LEVOTHYROXINE SODIUM 125 MCG TABLET PO SCH (08:47)
[2017-05-29] MEDS: busPIRone 5 MG TABLET PO SCH ×2 (08:47→12:32)
[2017-05-29] MEDS: GABAPENTIN 300 MG CAPSULE PO SCH ×2 (08:47→12:32)
[2017-05-29] MEDS: QUETIAPINE FUMARATE 25 MG TABLET PO SCH ×2 (08:48→12:32)
[2017-05-29] MEDS: METOPROLOL SUCCINATE 25 MG TAB.SR.24H PO SCH (08:48)
[2017-05-29 08:49] VITALS: BP 136/63
[2017-05-29] MEDS: LOSARTAN POTASSIUM 50 MG TABLET PO SCH (08:49)
[2017-05-29] MEDS: CALCIUM CARB 600MG /VIT D 1 EACH TABLET PO SCH (08:50)
[2017-05-29] MEDS: FERROUS SULFATE (325 MG) 325 MG/TAB TABLET PO SCH (08:50)
[2017-05-29] MEDS: Z GUARD REMEDY 2 OZ OINT TP SCH (09:00)
[2017-05-29] MEDS: CLOTRIMAZOLE 1% 15 GM TUBE TP SCH (10:03)
[2017-05-29] MEDS: INSULIN LISPRO/ASPART 100 UNIT/ML CARTRIDGE SQ SCH (10:07)
[2017-05-29] MEDS ORDERED: PHENYTOIN EXTENDED RELEASE 100 MG CAPSULE PO SCH (13:00)
[2017-05-29] MEDS: ACETAMINOPHEN 325 MG TABLET PO PRN (13:02)
--- NOTE | 2017-05-29 13:30 | NUR ---
CLOSING NOTE PATIENT ALERT AND ORIENTED X3. RESPIRATION REGULAR AND UNLABORED. DENIES SOB, PAIN AT THIS TIME. NO BEHAVIORAL PROBLEMS NOTED. THE PATIENT IN STABLE CONDITION. DISCHARGE EDUCATION PROVIDED AND THE PATIENT VERBALIZED UNDERSTANDING. THE PATIENT WAS PICKED UP GOING TO SNF. PATIENT LEFT THE HOSPITAL IN STABLE CONDITION.
== END 2017-05-29 13:45 | DRG 885 ==
LOC: ER 19:22 → GPS 23:05
PROVIDERS: ADMIT Psychiatry & Neurology Psychosomatic Medicine; ATTEND Nurse Practitioner Acute Care
DX: F25.0 Schizoaffective disorder, bipolar type (principal); N17.0 Acute kidney failure with tubular necrosis; N18.9 Chronic kidney disease, unspecified; E11.65 Type 2 diabetes mellitus with hyperglycemia; E44.1 Mild protein-calorie malnutrition; E11.22 Type 2 diabetes mellitus with diabetic chronic kidney disease; E11.40 Type 2 diabetes mellitus with diabetic neuropathy, unspecified; M48.02 Spinal stenosis, cervical region; I13.0 Hypertensive heart and chronic kidney disease with heart failure and stage 1 through stage 4 chronic kidney disease, or unspecified chronic kidney disease; T42.0X1A Poisoning by hydantoin derivatives, accidental (unintentional), initial encounter; W19.XXXA Unspecified fall, initial encounter; D50.9 Iron deficiency anemia, unspecified; D72.829 Elevated white blood cell count, unspecified; E03.9 Hypothyroidism, unspecified; E78.5 Hyperlipidemia, unspecified; G40.909 Epilepsy, unspecified, not intractable, without status epilepticus; J33.9 Nasal polyp, unspecified; K21.9 Gastro-esophageal reflux disease without esophagitis; K76.0 Fatty (change of) liver, not elsewhere classified; F29 Unspecified psychosis not due to a substance or known physiological condition; Z73.6 Limitation of activities due to disability; Z90.49 Acquired absence of other specified parts of digestive tract; E88.09 Other disorders of plasma-protein metabolism, not elsewhere classified; M48.061 Spinal stenosis, lumbar region without neurogenic claudication; R74.0 Nonspecific elevation of levels of transaminase and lactic acid dehydrogenase [LDH]; S00.03XA Contusion of scalp, initial encounter; Y93.9 Activity, unspecified; Y92.129 Unspecified place in nursing home as the place of occurrence of the external cause; Z68.31 Body mass index [BMI] 31.0-31.9, adult; F41.9 Anxiety disorder, unspecified; R29.6 Repeated falls; F19.90 Other psychoactive substance use, unspecified, uncomplicated; S00.12XA Contusion of left eyelid and periocular area, initial encounter; S00.11XA Contusion of right eyelid and periocular area, initial encounter; S50.12XA Contusion of left forearm, initial encounter; S50.11XA Contusion of right forearm, initial encounter; L30.4 Erythema intertrigo; L98.8 Other specified disorders of the skin and subcutaneous tissue; S00.81XA Abrasion of other part of head, initial encounter; I50.9 Heart failure, unspecified; E66.01 Morbid (severe) obesity due to excess calories; Z79.899 Other long term (current) drug therapy; Z79.4 Long term (current) use of insulin
CPT/HCPCS: 36415; 70450-TC; 70486-TC; 72125-TC; 72131-TC; 76705-TC; 80048-TC; 80061-TC; 80076-TC; 80185-TC; 80305; 81000-TC; 82945-TC; 82962-TC; 83540-TC; 83735-TC; 84100-TC; 84443-TC; 85025-TC; 87081-TC; A4606; G0480; J1650; J1815; Z7610